=== PATIENT | female | born 1995 | race Caucasian/White ===

== ENCOUNTER 2019-08-02 10:04 | Outpatient (CLI) | payer OTHER | END 2019-08-02 15:00 | disposition home or self-care (01) | LOC: LAB 10:04 | DX: D64.89 Other specified anemias (principal); N39.0 Urinary tract infection, site not specified; E03.8 Other specified hypothyroidism; E78.49 Other hyperlipidemia; E55.9 Vitamin D deficiency, unspecified; E16.2 Hypoglycemia, unspecified; Z13.29 Encounter for screening for other suspected endocrine disorder; D53.8 Other specified nutritional anemias; D51.8 Other vitamin B12 deficiency anemias ==